=== PATIENT | female | born 1970 | race Caucasian/White ===

== ENCOUNTER 2016-10-08 08:58 | Inpatient (IN) | payer BC ==
[~2016-10-08] VITALS: Ht 167.6 cm; Wt 95.7 kg
[2016-10-08 10:01] LABS: HEMATOCRIT 36.6 % (36.0-46.0); MCH 18.7 PG (29.0-34.0); MCHC 28.7 G/DL (30.0-36.0); MCV 65.1 FL (83-99); PLATELET COUNT 81 K/uL (156-360); RBC DIS.WIDTH-CV 19.2 % (11.8-14.6); RBC DIS.WIDTH-SD 42.4 % (39-53); RED BLOOD COUNT 5.62 M/uL (3.80-5.20); WHITE BLOOD COUNT 17.5 K/uL (4.1-10.2)
[2016-10-08 10:02] LABS: CHLORIDE 102 mEq/L (99-109); POTASSIUM 3.6 mEq/L (3.7-5.4); SODIUM 135 mEq/L (136-147)
[2016-10-08 10:04] LABS: GLUCOSE 122 mg/dL (70-99)
[2016-10-08 10:06] LABS: ANION GAP 9 MEQ/L (2-14)
[2016-10-08 10:08] LABS: GFR ESTIMATE (CALCULATED) > 59 mL/min/
[2016-10-08 10:09] LABS: UREA NITROGEN (BUN) 7 mg/dL (9-23)
[2016-10-08 10:42] LABS: TOTAL BILIRUBIN 0.5 mg/dL (0.0-1.0)
[2016-10-08 10:43] LABS: ALKALINE PHOSPHATASE 98 IU/L (3-129)
[2016-10-08 10:45] LABS: DIRECT BILIRUBIN 0.2 mg/dL (0.0-0.3)
[2016-10-08 10:46] LABS: LIPASE 7 U/L (1.0-51.0)
[2016-10-08 11:10] LABS: MONOCYTE (%) 2.9 % (3-12); NEUTROPHIL (%) 94.2 % (45-76)
[2016-10-08 11:11] LABS: EOSINOPHIL (%) 0 % (0-5); IMMATURE GRANULOCYTE (%) 0.6 % (0.0-0.7); IMMATURE GRANULOCYTE COUNT 0.1 K/uL; LYMPHOCYTE COUNT 0.4 K/uL (1.0-2.8); MONOCYTE COUNT 0.5 K/uL (0-0.8); NEUTROPHIL COUNT 17.5 K/uL (1.8-6.4)
[2016-10-08] MEDS ORDERED: MORPHINE SULFAT15 M1 PO (11:26)
[2016-10-08 12:12] LABS: INTERNAL CONTROL VALID? YES
[2016-10-08 12:46] LABS: C DIFF TOXIN POSITIVE (NEGATIVE)
[2016-10-08 12:50] LABS: PROBE CHECK PASS
[2016-10-08] MEDS ORDERED: AUGMENTIN875 MG PO (13:46)
[2016-10-08 19:50] VITALS: BP 110/58
[2016-10-09] VITALS: BP 100/52
[2016-10-09 04:00] VITALS: BP 98/55
[2016-10-09 07:01] LABS: HEMATOCRIT 34.8 % (36.0-46.0); MCH 18.6 PG (29.0-34.0); MCHC 28.2 G/DL (30.0-36.0); MCV 65.9 FL (83-99); PLATELET COUNT 67 K/uL (156-360); RBC DIS.WIDTH-CV 18.7 % (11.8-14.6); RBC DIS.WIDTH-SD 43.2 % (39-53); RED BLOOD COUNT 5.28 M/uL (3.80-5.20); WHITE BLOOD COUNT 18.5 K/uL (4.1-10.2)
[2016-10-09 07:21] LABS: ANION GAP 7 MEQ/L (2-14); CHLORIDE 107 MEQ/L (99-109); GFR ESTIMATE (CALCULATED) > 59 mL/min/; GLUCOSE 99 mg/dL (70-99); POTASSIUM 3.2 MEQ/L (3.7-5.4); SAMPLE HEMOLYSIS CHECK 0; SAMPLE ICTERIC CHECK 0; SAMPLE LIPEMIA CHECK 0; SODIUM 138 MEQ/L (136-147); UREA NITROGEN (BUN) 3 mg/dL (9-23)
[2016-10-09 07:30] VITALS: BP 134/58
[2016-10-09 11:03] LABS: HBSG INDEX 0.25
[2016-10-09 11:05] LABS: ANTI-HEPATITIS A VIRUS (IGM) Nonreactive; HAV INDEX 0.15
[2016-10-09 11:06] LABS: ANTI-HEPATITIS B CORE (IGM) Nonreactive; HBC IgM INDEX 0.51
[2016-10-09 20:41] VITALS: BP 94/61
[2016-10-10] VITALS: BP 96/42
[2016-10-10 04:01] VITALS: BP 108/67
[2016-10-10 08:00] VITALS: BP 108/64
[2016-10-10 13:36] LABS: HEMATOCRIT 33.6 % (36.0-46.0); MCH 18.6 PG (29.0-34.0); MCHC 27.7 G/DL (30.0-36.0); MCV 67.1 FL (83-99); PLATELET COUNT 73 K/uL (156-360); RBC DIS.WIDTH-SD 45.1 % (39-53); RED BLOOD COUNT 5.01 M/uL (3.80-5.20)
[2016-10-10 13:37] LABS: WHITE BLOOD COUNT 7.3 K/uL (4.1-10.2)
[2016-10-10 13:58] LABS: ANION GAP 8 MEQ/L (2-14); CHLORIDE 108 MEQ/L (99-109); GFR ESTIMATE (CALCULATED) > 59 mL/min/; GLUCOSE 89 mg/dL (70-99); POTASSIUM 3.2 MEQ/L (3.7-5.4); SAMPLE HEMOLYSIS CHECK 0; SAMPLE ICTERIC CHECK 0; SAMPLE LIPEMIA CHECK 0; SODIUM 142 MEQ/L (136-147); UREA NITROGEN (BUN) 3 mg/dL (9-23)
[2016-10-10 15:54] VITALS: BP 104/54
[2016-10-10 16:40] LABS: MAGNESIUM 1.8 mg/dl (1.3-2.7)
[2016-10-10 19:43] VITALS: BP 131/69
[2016-10-11 00:27] VITALS: BP 91/58
[2016-10-11 04:08] VITALS: BP 110/64
[2016-10-11 11:18] VITALS: BP 120/64
[2016-10-11] MEDS ORDERED: ONDANSETRON ODT4 MG PO (11:52)
[2016-10-11] MEDS ORDERED: VANCOCIN HCL125 MG PO (11:52)
== END 2016-10-11 12:26 | disposition home or self-care (01) | DRG 373 ==
LOC: EME 08:58 → EDOF 13:43 → 5SOUTH 13:43
PROVIDERS: Emergency Medicine; Internal Medicine; Physician Assistant
DX: A04.7 Enterocolitis due to Clostridium difficile (principal); E87.6 Hypokalemia; E86.0 Dehydration; D69.6 Thrombocytopenia, unspecified; G89.4 Chronic pain syndrome; F17.210 Nicotine dependence, cigarettes, uncomplicated; G43.909 Migraine, unspecified, not intractable, without status migrainosus; J45.909 Unspecified asthma, uncomplicated; M54.9 Dorsalgia, unspecified; Z98.1 Arthrodesis status
CPT/HCPCS: 71020; 80048; 80074; 80076; 83605; 83630; 83690; 83735; 85025; 85025 91; 85027; 87040; 87493; 87506; 99281; 99285; J1650; J2405; J3480; J7030

== ENCOUNTER 2017-04-29 12:44 | Emergency (ER) | payer BC ==
[~2017-04-29] VITALS: Ht 167.6 cm; Wt 97.6 kg
[~2017-04-29 12:44] MED LIST: AUGMENTIN875 MG PO; MORPHINE SULFAT15 M1 PO; ONDANSETRON ODT4 MG PO; VANCOCIN HCL125 MG PO
[2017-04-29 13:35] VITALS: BP 108/59
== END 2017-04-29 16:57 | disposition home or self-care (01) ==
LOC: EME 12:44
DX: S92.512A Displaced fracture of proximal phalanx of left lesser toe(s), initial encounter for closed fracture (principal); W01.0XXA Fall on same level from slipping, tripping and stumbling without subsequent striking against object, initial encounter; Y92.481 Parking lot as the place of occurrence of the external cause; Z98.1 Arthrodesis status; F17.200 Nicotine dependence, unspecified, uncomplicated
CPT/HCPCS: 73630; 99281; 99283